=== PATIENT | male | born 1965 | race Caucasian/White ===

== ENCOUNTER → 2020-07-18 | Outpatient (CLI) | payer OTHER | END | disposition home or self-care (01) | LOC: ROC 07:57 | PROVIDERS: ATTEND Radiology Radiation Oncology | DX: D33.3 Benign neoplasm of cranial nerves (principal) | CPT/HCPCS: 99214; G0463 ==

== ENCOUNTER → 2020-07-29 | Outpatient (CLI) | payer OTHER | END | disposition home or self-care (01) | LOC: STAR 08:38 | PROVIDERS: ATTEND Anesthesiology | DX: Z20.822 Contact with and (suspected) exposure to COVID-19 (principal) | CPT/HCPCS: U0003 ==

== ENCOUNTER 2020-08-02 08:05 | Day surgery (SDC) | payer OTHER ==
[~2020-08-02] VITALS: Ht 188 cm; Wt 113.6 kg
[2020-08-02] MEDS ORDERED: ZONI50CA10 PO (08:43)
[2020-08-02] MEDS ORDERED: LISI-170 PO (08:43)
[2020-08-02 08:45] VITALS: BP 155/85
[2020-08-02] MEDS ORDERED: FEXO60TA24 PO (08:49)
[2020-08-02] MEDS ORDERED: CHLORHEXIDINE 15 ML UDC ONE (08:53)
[2020-08-02] MEDS ORDERED: CHLORHEXIDINE 15 ML UDC PO ONE (09:00)
[2020-08-02] MEDS ORDERED: LACTATED RINGERS 1,000 ML IV SCH (09:00)
[2020-08-02 09:32] LABS: ALANINE AMINOTRANSFERASE 59 U/L (12-78); ALBUMIN 3.9 g/dL (3.4-5.0); ANION GAP 6 mmol/L (5-15); CALCIUM 9.4 mg/dL (8.5-10.1); CHLORIDE 107 mmol/L (98-107); CREATININE 0.92 mg/dL (0.7-1.3)
[2020-08-02 09:34] LABS: ALKALINE PHOSPHATASE 87 U/L (45-117); BILIRUBIN,TOTAL 0.5 mg/dL (0.2-1.0); TOTAL PROTEIN 7.8 g/dL (6.4-8.2)
[2020-08-02] MEDS ORDERED: GADOTERATE 10 MMOL/20ML SYR ONE (10:31)
[2020-08-02] MEDS ORDERED: FENTANYL PF 100 MCG/2ML IV PRN (11:00)
[2020-08-02] MEDS ORDERED: ONDANSETRON 2MG/ML, 2ML IVPush PRN (11:00)
[2020-08-02] MEDS ORDERED: PROMETHAZINE 25 MG/ML, 1ML IVPush PRN (12:00)
[2020-08-02] MEDS ORDERED: PROPOFOL 10 MG/ML, 20ML ONE (15:54)
== END 2020-08-02 12:10 | disposition home or self-care (01) ==
LOC: OUT 08:05 → EDSTATUS 10:00 → OUT 12:10
PROVIDERS: ATTEND Radiology Radiation Oncology
DX: D33.3 Benign neoplasm of cranial nerves (principal); Z79.899 Other long term (current) drug therapy
CPT/HCPCS: 36415; 70553; 80053; A9575; J2704; J7120